=== PATIENT | female | born 1950 | race Caucasian/White ===

== ENCOUNTER 2022-09-29 10:54 | Outpatient (REF) | payer MEDICARE, SELFPAY ==
[2022-09-29 13:14] LABS: Vitamin B12 416 pg/mL (200-900)
== END 2022-09-29 10:55 | disposition home or self-care (01) ==
LOC: HO.LAB 10:54
PROVIDERS: PCP Internal Medicine; Visit Provider Psychiatry & Neurology Neurology
DX: G31.84 Mild cognitive impairment of uncertain or unknown etiology (principal)
CPT/HCPCS: 36415; 82607